=== PATIENT | male | born 1975 | race Caucasian/White ===

== ENCOUNTER → 2021-08-14 | Outpatient (CLI) | payer BC ==
--- NOTE | 2021-08-14 22:27 | US ---
EXAMINATION TYPE: US axilla LT DATE OF EXAM: 08/14/2021 COMPARISON: NONE CLINICAL HISTORY: R59.0 Localized enlarged lymph nodes. Patient stated has fullness to left axilla si nce December after receiving Covid vaccine in December. FINDINGS AND IMPRESSION: Dictated left axillary ultrasound was performed. There is a lymph node in left axilla at 3cm deep and measuring 1.3 x 1.3 x 0.5cm. Lymph node has a n ormal appearance. Clinical and mammographic correlation recommended to rule out any breast pathology.
== END | disposition home or self-care (01) ==
LOC: RADUSWWP 16:51
PROVIDERS: ATTEND Family Medicine
DX: R59.0 Localized enlarged lymph nodes (principal)